=== PATIENT | male | born 1985 | race Hispanic/Latino ===

== ENCOUNTER 2017-11-30 23:21 | Emergency (ER) | payer MEDICAID ==
[~2017-11-30 23:21] MED LIST: ALBU0.63 IH; BACL10TA PEG; CHOL400T4 PO; DEXT1DRO OP; GABA-529 PO; IPRA3AMP4 IH; LACT10SO PEG; MIDO10TA PEG
[2017-11-30 23:42] LABS: APPEARANCE,URINE Clear (CLEAR); BILIRUBIN,URINE Negative (NEGATIVE); COLOR,URINE Yellow (YELLOW); GLUCOSE, URINE (UA) Negative (NEGATIVE); KETONES,URINE Negative (NEGATIVE); LEUKOCYTE ESTERASE ,URINE Negative (NEGATIVE); NITRATE,URINE Negative (NEGATIVE); OCCULT BLOOD,URINE Negative (NEGATIVE); PROTEIN,URINE Negative (NEGATIVE); UROBILINOGEN,URINE 0.2 mg/dL (0.2-1.0)
[2017-11-30] MEDS ORDERED: SODIUM CHLORIDE 0.9% 1000ML 2,000 ML IV ONE (23:42)
[2017-11-30 23:51] LABS: BASOPHILS % (AUTO) 1.3 % (0.0-5.0); EOSINOPHILS % (AUTO) 1.9 % (0.0-8.0); HEMATOCRIT 38.5 % (42-54); LYMPHOCYTES % (AUTO) 6.2 % (21.0-51.0); MEAN CORPUSCULAR HEMOGLOBIN 30.2 pg (27.0-33.0); MEAN CORPUSCULAR HGB CONC 33.3 g/dL (32.0-36.0); MEAN CORPUSCULAR VOLUME 90.6 fL (79-99); MONOCYTES % (AUTO) 6.5 % (3.0-13.0); NUCLEATED RED BLOOD CELLS 0.1 % (0.0-0.19); PLATELET COUNT (AUTO) 223 K/uL (130-400); RED BLOOD CELL COUNT(AUTO) 4.24 MIL/uL (4.50-6.20); RED CELL DISTRIBUTION WIDTH 15.5 % (11.0-15.5); WHITE BLOOD COUNT (AUTO) 9.9 K/uL (4.8-10.8)
[2017-11-30] MEDS ORDERED: MEROPENEM 1 GM VIAL ONE (23:57)
[2017-12-01] LABS: INR 1.11 (0.85-1.15); PARTIAL THROMBOPLASTIN TIME 31.3 SEC (26.3-35.5); PROTHROMBIN TIME 11.6 SEC (9.6-11.6)
[2017-12-01 00:43] LABS: NEUTROPHILS % (AUTO) 84.1 % (40.0-77.0)
[2018-02-09] MEDS ORDERED: TRAZ-144 PO (18:38)
== END 2017-12-01 01:46 | disposition home or self-care (01) ==
LOC: EDH 23:21
DX: J18.9 Pneumonia, unspecified organism (principal); J04.10 Acute tracheitis without obstruction; R10.9 Unspecified abdominal pain
CPT/HCPCS: 36415; 71045; 81003; 83605; 85025; 85610; 85730; 87040 ×2; 87071; 87088; 87205; 87804 ×2; 96361; 96374; 99285; A4218; J2185; J7030

== ENCOUNTER 2018-02-08 20:24 | Inpatient (IN) | payer MEDICAID ==
[~2018-02-08] VITALS: Ht 165.1 cm; Wt 46.4 kg
[~2018-02-08 20:24] MED LIST changes: +IPRA3AMP24 IH; -IPRA3AMP4 IH
[2018-02-08 20:53] LABS: BASOPHILS % (AUTO) 0.3 % (0.0-5.0); EOSINOPHILS % (AUTO) 0.2 % (0.0-8.0); HEMATOCRIT 41.5 % (42-54); LYMPHOCYTES % (AUTO) 3.6 % (21.0-51.0); MEAN CORPUSCULAR HEMOGLOBIN 31.3 pg (27.0-33.0); MEAN CORPUSCULAR HGB CONC 33.8 g/dL (32.0-36.0); MEAN CORPUSCULAR VOLUME 92.6 fL (79-99); NEUTROPHILS % (AUTO) 92.9 % (40.0-77.0); PLATELET COUNT (AUTO) 329 K/uL (130-400); RED BLOOD CELL COUNT(AUTO) 4.48 MIL/uL (4.50-6.20); RED CELL DISTRIBUTION WIDTH 14.6 % (11.0-15.5); WHITE BLOOD COUNT (AUTO) 21.6 K/uL (4.8-10.8)
[2018-02-08 21:05] LABS: CARBON DIOXIDE 29 mmol/L (21-32); CHLORIDE 101 mmol/L (101-111); CREATININE 0.2 mg/dL (0.5-1.5); GLOMERULAR FILTR. RATE CALC 593 mL/min (>60); GLUCOSE,RANDOM 96 mg/dL (70-105); POTASSIUM 4.2 mmol/L (3.5-5.1); SODIUM SERUM 140 mmol/L (136-145); UREA NITROGEN, BLOOD 11 mg/dL (7-18)
[2018-02-08 21:08] LABS: INR 1.18 (0.85-1.15); PARTIAL THROMBOPLASTIN TIME 28.5 SEC (26.3-35.5)
[2018-02-08 21:11] LABS: APPEARANCE,URINE Turbid (CLEAR); BILIRUBIN,URINE Negative (NEGATIVE); COLOR,URINE Yellow (YELLOW); GLUCOSE, URINE (UA) Negative (NEGATIVE); KETONES,URINE Negative (NEGATIVE); LEUKOCYTE ESTERASE ,URINE Negative (NEGATIVE); NITRATE,URINE Negative (NEGATIVE); OCCULT BLOOD,URINE Negative (NEGATIVE); PH,URINE 8.5 (5.0-8.0); PROTEIN,URINE Negative (NEGATIVE)
[2018-02-08 21:19] LABS: ALANINE AMINOTRANSFERASE 56 U/L (12-78); ALBUMIN 3.9 g/dL (3.5-5.0); ASPARTATE AMINOTRANSFERASE 38 U/L (10-37); BILIRUBIN,TOTAL 1.3 mg/dL (0.2-1.0); CREATINE KINASE MB 1.4 ng/mL (0.5-3.6); CREATINE KINASE, TOTAL 264 U/L (21-232); MYOGLOBIN 145 ng/mL (10-92); TOTAL PROTEIN, SERUM 9.8 g/dL (6.0-8.3); TROPONIN I < 0.04 ng/mL (0.00-0.06)
[2018-02-08 21:57] LABS: AMORPHOUS SEDIMENT,UR Moderate /LPF (None Seen); BACTERIA,URINE Few /HPF (None Seen); RBC,URINE None Seen /HPF (0-1); WBC,URINE None Seen /HPF (0-1)
[2018-02-08] MEDS ORDERED: MEROPENEM 1 GM VIAL ONE (22:06)
[2018-02-08] MEDS ORDERED: LEVOFLOXACIN 500 MG/D5W 100 ML 100 ML ONE (22:15)
[2018-02-08] MEDS ORDERED: CEFTRIAXONE SODIUM 1 GM ONE (22:15)
[2018-02-08] MEDS ORDERED: SODIUM CHLORIDE 0.9% 50 ML IV ONE (22:16)
[2018-02-09] VITALS (18 sets, daily range): BP systolic 90–147; BP diastolic 46–85
[2018-02-09] MEDS ORDERED: KETOROLAC TROMETHAMINE 30MG/ML ONE (00:11)
[2018-02-09] MEDS: SODIUM CHLORIDE 0.9% 1000ML 1,000 ML IV SCH ×3 (01:22→23:49)
[2018-02-09] MEDS: LEVOFLOXACIN 500 MG/D5W 100 ML 100 ML IV SCH (01:30)
[2018-02-09] MEDS ORDERED: POTASSIUM CHLORIDE 20 MEQ ERTAB PO PRN (01:30)
[2018-02-09] MEDS ORDERED: VANCOMYCIN 1GM+NS 250ML 250 ML IV SCH (01:30)
[2018-02-09] MEDS ORDERED: POTASSIUM CHLORIDE 20MEQ/100ML 100 ML IV PRN (01:30)
[2018-02-09] MEDS ORDERED: LIDOCAINE HCL-MPF 1% 2ML VIAL IVP PRN (01:30)
[2018-02-09] MEDS ORDERED: ONDANSETRON HCL MDV 20ML 2 MG/ML VIAL IV PRN (01:30)
[2018-02-09] MEDS ORDERED: VANCOMYCIN PROTOCOL PER PHARMACY IV SCH (02:15)
[2018-02-09] MEDS ORDERED: SODIUM CHLORIDE 0.9% 1000ML 1,000 ML IV ONE (02:57)
[2018-02-09] MEDS ORDERED: VANCOMYCIN 1GM+NS 250ML 250 ML IV ONE (02:58)
[2018-02-09] MEDS ORDERED: KETOROLAC TROMETHAMINE 15MG/ML ONE (04:16)
[2018-02-09 04:42] LABS: HEMATOCRIT 34.5 % (42-54); MEAN CORPUSCULAR HGB CONC 33.1 g/dL (32.0-36.0); MEAN CORPUSCULAR VOLUME 93.5 fL (79-99); PLATELET COUNT (AUTO) 273 K/uL (130-400); RED BLOOD CELL COUNT(AUTO) 3.69 MIL/uL (4.50-6.20); RED CELL DISTRIBUTION WIDTH 14.4 % (11.0-15.5)
[2018-02-09 04:59] LABS: POTASSIUM 3.4 mmol/L (3.5-5.1)
[2018-02-09 05:13] LABS: CREATININE 0.2 mg/dL (0.5-1.5)
[2018-02-09] MEDS ORDERED: IPRATROPIUM/ALBUTEROL SULFATE 3 ML SOLUTION IH ONE (06:16)
[2018-02-09] MEDS: IPRATROPIUM/ALBUTEROL SULFATE 3 ML SOLUTION IH SCH ×4 (06:19→23:28)
[2018-02-09 08:25] LABS: ABG BASE EXCESS -3.9 mmol/L (-2.0-3.0); ABG HCO3 19.7 mmol/L (21.0-28.0); ABG OXYGEN SATURATION 91.8 % (95.0-99.0); ABG PCO2 32 mmHg (35-48)
[2018-02-09] MEDS ORDERED: PANTOPRAZOLE 40 MG/VIAL IVP SCH (09:00)
[2018-02-09] MEDS ORDERED: NITROGLYCERIN 0.4 MG SL TAB SL PRN (10:30)
[2018-02-09] MEDS ORDERED: MAG HYDROX/AL HYDROX/SIMETH ES 30 ML SUSP UDCUP PO PRN (10:30)
[2018-02-09] MEDS ORDERED: GUAIFENESIN-DM 200/20 MG 10 ML PO PRN (10:30)
[2018-02-09] MEDS ORDERED: LACTULOSE 20 GM/30 ML UDCUP PO PRN (10:30)
[2018-02-09] MEDS ORDERED: ACETAMINOPHEN 325 MG TAB PO PRN ×2 (10:30)
[2018-02-09] MEDS ORDERED: COMPOUND IV REFRIGERATED 1 EACH IVSOLN MISC PRN (10:45)
[2018-02-09] MEDS: ACETYLCYSTEINE 20% 200MG/ML 4ML VIAL IH SCH ×2 (11:06→18:31)
[2018-02-09] MEDS: VANCOMYCIN 750MG + NS 250 ML IV SCH ×4 (13:09→20:53)
[2018-02-09] MEDS: ENOXAPARIN SODIUM 40 MG/0.4 ML SYRINGE SQ SCH (14:22)
[2018-02-09] MEDS: ZOSYN 3.375GM+NS 50ML 50 ML IV SCH ×2 (14:34→22:49)
[2018-02-09] MEDS ORDERED: ACETAMINOPHEN ELIXIR 650 MG/20.3 ML UDCUP PEG PRN (16:30)
[2018-02-09] MEDS: ACETAMINOPHEN ELIXIR 650 MG/20.3 ML UDCUP PEG PRN (16:36)
[2018-02-09] MEDS ORDERED: ALBU0.63 IH (18:29)
[2018-02-09] MEDS ORDERED: BACL10TA PO (18:29)
[2018-02-09] MEDS ORDERED: LACT10SO9 PO (18:33)
[2018-02-09] MEDS ORDERED: GABA-529 PO (18:33)
[2018-02-09] MEDS ORDERED: IBUP100O20 PO (18:37)
[2018-02-09] MEDS ORDERED: ACET160S2 PO (18:37)
[2018-02-09] MEDS ORDERED: TRAZ-185 PO (18:38)
[2018-02-10] VITALS (25 sets, daily range): BP systolic 85–109; BP diastolic 41–71
[2018-02-10] MEDS: LEVOFLOXACIN 500 MG/D5W 100 ML 100 ML IV SCH (01:39)
[2018-02-10 04:18] LABS: HEMATOCRIT 27.1 % (42-54); MEAN CORPUSCULAR HEMOGLOBIN 33.2 pg (27.0-33.0); MEAN CORPUSCULAR HGB CONC 35.1 g/dL (32.0-36.0); MEAN CORPUSCULAR VOLUME 94.6 fL (79-99); PLATELET COUNT (AUTO) 199 K/uL (130-400); RED BLOOD CELL COUNT(AUTO) 2.86 MIL/uL (4.50-6.20); RED CELL DISTRIBUTION WIDTH 14.5 % (11.0-15.5); WHITE BLOOD COUNT (AUTO) 9.7 K/uL (4.8-10.8)
[2018-02-10] MEDS: ZOSYN 3.375GM+NS 50ML 50 ML IV SCH ×3 (04:23→23:01)
[2018-02-10 04:26] LABS: CREATININE 0.2 mg/dL (0.5-1.5); POTASSIUM 3.2 mmol/L (3.5-5.1)
[2018-02-10] MEDS: IPRATROPIUM/ALBUTEROL SULFATE 3 ML SOLUTION IH SCH ×3 (06:35→18:55)
[2018-02-10] MEDS: ACETYLCYSTEINE 20% 200MG/ML 4ML VIAL IH SCH ×3 (06:35→18:55)
[2018-02-10] MEDS ORDERED: IBUPROFEN 100 MG/5 ML SUSP UDCUP PO PRN (07:15)
[2018-02-10] MEDS ORDERED: TRAZODONE HCL 50 MG TAB PO PRN (07:15)
[2018-02-10] MEDS: FAMOTIDINE/PF 20 MG/2 ML VIAL IV SCH ×2 (08:58→20:51)
[2018-02-10] MEDS: ENOXAPARIN SODIUM 40 MG/0.4 ML SYRINGE SQ SCH (08:58)
[2018-02-10] MEDS: MIDODRINE HCL 5 MG TABLET PEG SCH ×3 (08:58→20:52)
[2018-02-10] MEDS: GABAPENTIN 100 MG CAPSULE PO SCH ×3 (08:59→20:52)
[2018-02-10] MEDS: POTASSIUM CHLORIDE 10% ELIXIR 20 MEQ/15 ML UDCUP PO PRN ×3 (08:59→13:02)
[2018-02-10] MEDS: LACTULOSE 20 GM/30 ML UDCUP PO SCH ×3 (09:00→20:51)
[2018-02-10] MEDS: VANCOMYCIN 750MG + NS 250 ML IV SCH ×2 (09:04)
[2018-02-10] MEDS: **HM** VIT D3 400 UNITS PO SCH (09:05)
[2018-02-10] MEDS: VANCOMYCIN 1GM+NS 250ML 250 ML IV SCH (20:51)
[2018-02-10] MEDS: BACLOFEN 10 MG TABLET PO SCH (20:52)
[2018-02-11] VITALS (21 sets, daily range): BP systolic 81–122; BP diastolic 37–74
[2018-02-11] MEDS: IPRATROPIUM/ALBUTEROL SULFATE 3 ML SOLUTION IH SCH ×5 (00:36→23:22)
[2018-02-11] MEDS: LEVOFLOXACIN 500 MG/D5W 100 ML 100 ML IV SCH (02:42)
[2018-02-11] MEDS: ZOSYN 3.375GM+NS 50ML 50 ML IV SCH ×3 (05:11→21:02)
[2018-02-11 06:04] LABS: HEMATOCRIT 29.1 % (42-54); MEAN CORPUSCULAR HEMOGLOBIN 31.5 pg (27.0-33.0); MEAN CORPUSCULAR HGB CONC 33.5 g/dL (32.0-36.0); MEAN CORPUSCULAR VOLUME 93.9 fL (79-99); PLATELET COUNT (AUTO) 233 K/uL (130-400); RED CELL DISTRIBUTION WIDTH 14.5 % (11.0-15.5); WHITE BLOOD COUNT (AUTO) 6.1 K/uL (4.8-10.8)
[2018-02-11 06:16] LABS: POTASSIUM 4.3 mmol/L (3.5-5.1)
[2018-02-11 06:21] LABS: CREATININE 0.2 mg/dL (0.5-1.5)
[2018-02-11] MEDS ORDERED: ACETYLCYSTEINE 20% 200MG/ML 4ML VIAL ONE (06:53)
[2018-02-11] MEDS: ACETYLCYSTEINE 20% 200MG/ML 4ML VIAL IH SCH ×3 (06:55→19:14)
[2018-02-11] MEDS ORDERED: TRAMADOL HCL 50 MG TABLET PO PRN (07:15)
[2018-02-11] MEDS: FAMOTIDINE/PF 20 MG/2 ML VIAL IV SCH ×2 (08:01→21:02)
[2018-02-11] MEDS: GABAPENTIN 100 MG CAPSULE PO SCH ×3 (08:01→21:01)
[2018-02-11] MEDS: ENOXAPARIN SODIUM 40 MG/0.4 ML SYRINGE SQ SCH (08:01)
[2018-02-11] MEDS: LACTULOSE 20 GM/30 ML UDCUP PO SCH ×3 (08:02→21:00)
[2018-02-11] MEDS: **HM** VIT D3 400 UNITS PO SCH (08:05)
[2018-02-11] MEDS: VANCOMYCIN 1GM+NS 250ML 250 ML IV SCH ×2 (08:13→21:02)
[2018-02-11] MEDS: MIDODRINE HCL 5 MG TABLET PEG SCH ×3 (08:14→21:02)
[2018-02-11] MEDS: BACLOFEN 10 MG TABLET PO SCH (21:02)
[2018-02-12] MEDS: LEVOFLOXACIN 500 MG/D5W 100 ML 100 ML IV SCH (00:37)
[2018-02-12 03:32] VITALS: BP 82/52
[2018-02-12 04:18] LABS: HEMATOCRIT 31.2 % (42-54); MEAN CORPUSCULAR HEMOGLOBIN 32.8 pg (27.0-33.0); MEAN CORPUSCULAR HGB CONC 34.7 g/dL (32.0-36.0); MEAN CORPUSCULAR VOLUME 94.4 fL (79-99); PLATELET COUNT (AUTO) 240 K/uL (130-400); RED CELL DISTRIBUTION WIDTH 14.5 % (11.0-15.5); WHITE BLOOD COUNT (AUTO) 8.6 K/uL (4.8-10.8)
[2018-02-12 04:20] LABS: CREATININE 0.2 mg/dL (0.5-1.5); POTASSIUM 4.1 mmol/L (3.5-5.1)
[2018-02-12] MEDS: ZOSYN 3.375GM+NS 50ML 50 ML IV SCH ×2 (04:24→12:02)
[2018-02-12] MEDS: IPRATROPIUM/ALBUTEROL SULFATE 3 ML SOLUTION IH SCH (06:21)
[2018-02-12 07:18] VITALS: BP 95/55
[2018-02-12] MEDS ORDERED: LEVO750T46 PO (07:25)
[2018-02-12] MEDS: MIDODRINE HCL 5 MG TABLET PEG SCH ×2 (08:35→12:02)
[2018-02-12] MEDS: FAMOTIDINE/PF 20 MG/2 ML VIAL IV SCH (08:35)
[2018-02-12] MEDS: VANCOMYCIN 1GM+NS 250ML 250 ML IV SCH (08:36)
[2018-02-12] MEDS: ENOXAPARIN SODIUM 40 MG/0.4 ML SYRINGE SQ SCH (08:37)
[2018-02-12] MEDS: **HM** VIT D3 400 UNITS PO SCH (08:37)
[2018-02-12] MEDS: LACTULOSE 20 GM/30 ML UDCUP PO SCH ×2 (08:37→11:55)
[2018-02-12] MEDS: GABAPENTIN 100 MG CAPSULE PO SCH ×2 (08:37→12:02)
[2018-02-12 11:07] VITALS: BP 91/46
[2018-02-12 15:26] VITALS: BP 90/49
[2018-02-12] MEDS: ACETAMINOPHEN ELIXIR 650 MG/20.3 ML UDCUP PEG PRN (15:31)
== END 2018-02-12 16:20 | disposition home or self-care (01) | DRG 720 ==
LOC: EDH 20:24 → EDHIP 20:25 → 2BH 02-09 08:07
PROVIDERS: ADMIT Internal Medicine; ATTEND Internal Medicine
PROC: 5A1945Z Respiratory Ventilation, 24-96 Consecutive Hours (ICD-10-PCS; principal; 2018-02-08)
DX: A41.9 Sepsis, unspecified organism (principal); J96.10 Chronic respiratory failure, unspecified whether with hypoxia or hypercapnia; J18.9 Pneumonia, unspecified organism; E44.0 Moderate protein-calorie malnutrition; G71.0 Muscular dystrophy; R53.2 Functional quadriplegia; Z93.0 Tracheostomy status; G62.9 Polyneuropathy, unspecified; D64.9 Anemia, unspecified; Z93.1 Gastrostomy status; Z68.1 Body mass index [BMI] 19.9 or less, adult
CPT/HCPCS: 36415; 36600; 71045; 80048; 80053; 80202; 81001; 82550; 82553; 82803; 83605; 83874; 84484; 85025; 85027; 85610; 85730; 87040; 87071; 87077; 87088; 87186; 87205; 93005; 94002; 94003; 94640; 94664; 94667; 94668; C9113; J0696; J1650; J1885; J1956; J2185; J2543; J3370; J3490; J7030; J7608

== ENCOUNTER 2018-03-28 18:35 | Inpatient (IN) | payer MEDICAID ==
[~2018-03-28] VITALS: Ht 160 cm; Wt 44.9 kg
[~2018-03-28 18:35] MED LIST changes: +ACET160S2 PO; -BACL10TA PEG; +BACL10TA PO; -DEXT1DRO OP; +IBUP100O20 PO; -IPRA3AMP24 IH; -LACT10SO PEG; +LACT10SO9 PO; +LEVO750T46 PO; +TRAZ-185 PO
[2018-03-28 19:15] LABS: BASOPHILS % (AUTO) 0.1 % (0.0-5.0); EOSINOPHILS % (AUTO) 0.2 % (0.0-8.0); HEMATOCRIT 33.9 % (42-54); MEAN CORPUSCULAR HEMOGLOBIN 31.8 pg (27.0-33.0); MEAN CORPUSCULAR HGB CONC 34.4 g/dL (32.0-36.0); MEAN CORPUSCULAR VOLUME 92.6 fL (79-99); MONOCYTES % (AUTO) 5.4 % (3.0-13.0); NEUTROPHILS % (AUTO) 92.3 % (40.0-77.0); PLATELET COUNT (AUTO) 240 K/uL (130-400); RED BLOOD CELL COUNT(AUTO) 3.66 MIL/uL (4.50-6.20); RED CELL DISTRIBUTION WIDTH 14.4 % (11.0-15.5); WHITE BLOOD COUNT (AUTO) 17.7 K/uL (4.8-10.8)
[2018-03-28 19:30] LABS: CARBON DIOXIDE 27 mmol/L (21-32); CHLORIDE 100 mmol/L (101-111); CREATININE 0.2 mg/dL (0.5-1.5); GLOMERULAR FILTR. RATE CALC 593 mL/min (>60); GLUCOSE,RANDOM 116 mg/dL (70-105); POTASSIUM 3.7 mmol/L (3.5-5.1); SODIUM SERUM 135 mmol/L (136-145); UREA NITROGEN, BLOOD 14 mg/dL (7-18)
[2018-03-28 19:32] LABS: INR 1.19 (0.85-1.15); PARTIAL THROMBOPLASTIN TIME 30.7 SEC (26.3-35.5); PROTHROMBIN TIME 12.5 SEC (9.6-11.6)
[2018-03-28 19:45] LABS: ALANINE AMINOTRANSFERASE 40 U/L (12-78); ALBUMIN 3.2 g/dL (3.5-5.0); ASPARTATE AMINOTRANSFERASE 26 U/L (10-37); BILIRUBIN,TOTAL 1.2 mg/dL (0.2-1.0); CREATINE KINASE, TOTAL 163 U/L (21-232); MYOGLOBIN 156 ng/mL (10-92); TOTAL PROTEIN, SERUM 8.1 g/dL (6.0-8.3); TROPONIN I < 0.04 ng/mL (0.00-0.06)
[2018-03-28 20:28] LABS: APPEARANCE,URINE Clear (CLEAR); BILIRUBIN,URINE Negative (NEGATIVE); COLOR,URINE Yellow (YELLOW); GLUCOSE, URINE (UA) Negative (NEGATIVE); KETONES,URINE Negative (NEGATIVE); LEUKOCYTE ESTERASE ,URINE Negative (NEGATIVE); NITRATE,URINE Negative (NEGATIVE); OCCULT BLOOD,URINE Negative (NEGATIVE); PROTEIN,URINE Negative (NEGATIVE)
[2018-03-28] MEDS ORDERED: CEFTRIAXONE SODIUM 1 GM ONE (21:40)
[2018-03-28] MEDS ORDERED: ACETAMINOPHEN ELIXIR 650 MG/20.3 ML UDCUP ONE (21:40)
[2018-03-28] MEDS ORDERED: ZOSYN 3.375GM+NS 50ML 50 ML IV ONE (21:40)
[2018-03-28] MEDS ORDERED: ACETAMINOPHEN 325 MG TAB PEG PRN (22:15)
[2018-03-28] MEDS ORDERED: GUAIFENESIN-DM 200/20 MG 10 ML PEG PRN (22:15)
[2018-03-28] MEDS ORDERED: VANCOMYCIN 1GM+NS 250ML 250 ML IV SCH (22:15)
[2018-03-28] MEDS ORDERED: CLONIDINE HCL 0.1 MG TABLET PO PRN (22:15)
[2018-03-28] MEDS ORDERED: SODIUM CHLORIDE 0.9% 10 ML VIAL IVP SCH (22:15)
[2018-03-28] MEDS ORDERED: ACETAMINOPHEN 325 MG TAB PO PRN (22:15)
[2018-03-28] MEDS ORDERED: LACTULOSE 20 GM/30 ML UDCUP PO PRN (22:15)
[2018-03-28] MEDS: PIPERACILLIN SODIUM/TAZOBACTAM 3.375 GM VIAL IV SCH (23:00)
[2018-03-28] MEDS: IPRATROPIUM/ALBUTEROL SULFATE 3 ML SOLUTION IH SCH (23:08)
[2018-03-29] MEDS: LEVOFLOXACIN 500 MG/D5W 100 ML 100 ML IV SCH
[2018-03-29] MEDS: VANCOMYCIN 1GM+NS 250ML 250 ML IV SCH ×2 (01:00→13:00)
[2018-03-29] MEDS ORDERED: LEVOFLOXACIN 500 MG/D5W 100 ML 100 ML ONE (01:24)
[2018-03-29] MEDS ORDERED: POTASSIUM CHLORIDE 20 MEQ ERTAB PO PRN ×2 (01:45→12:30)
[2018-03-29] MEDS ORDERED: LIDOCAINE HCL-MPF 1% 2ML VIAL IVP PRN ×2 (01:45→12:30)
[2018-03-29] MEDS ORDERED: POTASSIUM CHLORIDE 10% ELIXIR 20 MEQ/15 ML UDCUP PO PRN ×2 (01:45→12:30)
[2018-03-29] MEDS ORDERED: POTASSIUM CHLORIDE 20MEQ/100ML 100 ML IV PRN ×2 (01:45→12:30)
[2018-03-29] MEDS ORDERED: VANCOMYCIN 1GM+NS 250ML 250 ML IV ONE ×2 (03:54→15:48)
[2018-03-29] MEDS: PIPERACILLIN SODIUM/TAZOBACTAM 3.375 GM VIAL IV SCH ×4 (05:00→23:00)
[2018-03-29 06:00] LABS: BASOPHILS % (AUTO) 0.1 % (0.0-5.0); EOSINOPHILS % (AUTO) 0.1 % (0.0-8.0); HEMATOCRIT 33.5 % (42-54); LYMPHOCYTES % (AUTO) 5.4 % (21.0-51.0); MEAN CORPUSCULAR HEMOGLOBIN 31.5 pg (27.0-33.0); MEAN CORPUSCULAR HGB CONC 33.7 g/dL (32.0-36.0); MEAN CORPUSCULAR VOLUME 93.6 fL (79-99); MONOCYTES % (AUTO) 11.1 % (3.0-13.0); NEUTROPHILS % (AUTO) 83.3 % (40.0-77.0); PLATELET COUNT (AUTO) 239 K/uL (130-400); RED BLOOD CELL COUNT(AUTO) 3.58 MIL/uL (4.50-6.20); RED CELL DISTRIBUTION WIDTH 14.2 % (11.0-15.5); WHITE BLOOD COUNT (AUTO) 19.7 K/uL (4.8-10.8)
[2018-03-29 06:09] LABS: POTASSIUM 3.1 mmol/L (3.5-5.1)
[2018-03-29] MEDS ORDERED: IPRATROPIUM/ALBUTEROL SULFATE 3 ML SOLUTION IH ONE (06:37)
[2018-03-29 06:38] LABS: CREATININE 0.2 mg/dL (0.5-1.5)
[2018-03-29] MEDS: IPRATROPIUM/ALBUTEROL SULFATE 3 ML SOLUTION IH SCH ×4 (06:39→23:10)
[2018-03-29] MEDS ORDERED: POTASSIUM CHLORIDE 20MEQ/100ML 100 ML IV ONE (08:23)
[2018-03-29] MEDS ORDERED: ZOSYN 3.375GM+NS 50ML 50 ML IV ONE ×4 (08:23→22:23)
[2018-03-29] MEDS ORDERED: FAMOTIDINE 20MG TAB 20 MG TAB ONE (08:23)
[2018-03-29] MEDS: FAMOTIDINE 20MG TAB 20 MG TAB PEG SCH ×2 (09:00→21:00)
[2018-03-29] MEDS ORDERED: MIDODRINE HCL 5 MG TABLET ONE ×2 (09:19→13:48)
[2018-03-29] MEDS: MIDODRINE HCL 5 MG TABLET PO SCH ×3 (09:27→21:00)
[2018-03-29] MEDS: GABAPENTIN 100 MG CAPSULE PO SCH ×3 (09:27→21:00)
[2018-03-29] MEDS ORDERED: POTASSIUM CHLORIDE 10% ELIXIR 20 MEQ/15 ML UDCUP ONE ×2 (10:25→14:02)
[2018-03-29] MEDS: ACETYLCYSTEINE 20% 200MG/ML 4ML VIAL IH SCH ×3 (12:20→23:10)
[2018-03-29] MEDS: VANCOMYCIN 500MG+NS 100ML 100 ML IV SCH (18:00)
[2018-03-29] MEDS ORDERED: VANCOMYCIN PROTOCOL PER PHARMACY IV SCH (18:00)
[2018-03-30 04:43] LABS: ABG BASE EXCESS 0.3 mmol/L (-2.0-3.0); ABG HCO3 24.9 mmol/L (21.0-28.0); ABG OXYGEN SATURATION 98.7 % (95.0-99.0); ABG PCO2 40 mmHg (35-48)
[2018-03-30] MEDS: PIPERACILLIN SODIUM/TAZOBACTAM 3.375 GM VIAL IV SCH ×4 (05:00→23:00)
[2018-03-30 05:35] LABS: BASOPHILS % (AUTO) 0.3 % (0.0-5.0); EOSINOPHILS % (AUTO) 1.5 % (0.0-8.0); HEMATOCRIT 28.4 % (42-54); LYMPHOCYTES % (AUTO) 16.5 % (21.0-51.0); MEAN CORPUSCULAR HEMOGLOBIN 32.5 pg (27.0-33.0); MEAN CORPUSCULAR HGB CONC 34.5 g/dL (32.0-36.0); MEAN CORPUSCULAR VOLUME 94.2 fL (79-99); MONOCYTES % (AUTO) 13.9 % (3.0-13.0); NEUTROPHILS % (AUTO) 67.8 % (40.0-77.0); PLATELET COUNT (AUTO) 230 K/uL (130-400); RED BLOOD CELL COUNT(AUTO) 3.02 MIL/uL (4.50-6.20); RED CELL DISTRIBUTION WIDTH 14.3 % (11.0-15.5); WHITE BLOOD COUNT (AUTO) 8.1 K/uL (4.8-10.8)
[2018-03-30] MEDS ORDERED: IPRATROPIUM/ALBUTEROL SULFATE 3 ML SOLUTION IH ONE (05:46)
[2018-03-30] MEDS: IPRATROPIUM/ALBUTEROL SULFATE 3 ML SOLUTION IH SCH ×3 (05:47→19:13)
[2018-03-30] MEDS ORDERED: ZOSYN 3.375GM+NS 50ML 50 ML IV ONE (05:50)
[2018-03-30] MEDS ORDERED: ACETYLCYSTEINE 20% 200MG/ML 4ML VIAL ONE (05:51)
[2018-03-30 05:52] LABS: ALBUMIN 2.6 g/dL (3.5-5.0); MAGNESIUM 1.7 mg/dL (1.80-2.40); PHOSPHORUS 3.2 mg/dL (2.5-4.9); POTASSIUM 4.2 mmol/L (3.5-5.1); TOTAL PROTEIN, SERUM 7.1 g/dL (6.0-8.3)
[2018-03-30] MEDS: ACETYLCYSTEINE 20% 200MG/ML 4ML VIAL IH SCH ×3 (05:53→19:13)
[2018-03-30] MEDS: VANCOMYCIN 500MG+NS 100ML 100 ML IV SCH ×2 (06:00→17:42)
[2018-03-30 06:19] LABS: CREATININE 0.1 mg/dL (0.5-1.5)
[2018-03-30] MEDS ORDERED: ENOXAPARIN SODIUM 40 MG/0.4 ML SYRINGE SQ ONE (08:28)
[2018-03-30] MEDS ORDERED: LEVOFLOXACIN 500 MG/D5W 100 ML 100 ML ONE (08:28)
[2018-03-30] MEDS: FAMOTIDINE 20MG TAB 20 MG TAB PEG SCH ×2 (09:00→20:55)
[2018-03-30] MEDS: MIDODRINE HCL 5 MG TABLET PO SCH ×3 (09:00→20:56)
[2018-03-30] MEDS: GABAPENTIN 100 MG CAPSULE PO SCH ×3 (09:00→20:56)
[2018-03-30] MEDS: ENOXAPARIN SODIUM 40 MG/0.4 ML SYRINGE SQ SCH (09:00)
[2018-03-30] MEDS ORDERED: FAMOTIDINE 20MG TAB 20 MG TAB ONE (09:45)
[2018-03-30 10:40] VITALS: BP 98/63
[2018-03-30] MEDS ORDERED: IBUPROFEN 100 MG/5 ML SUSP UDCUP PO PRN (13:45)
[2018-03-30] MEDS ORDERED: TRAZODONE HCL 50 MG TAB PO PRN (13:45)
[2018-03-30 16:05] VITALS: BP 91/51
[2018-03-30] MEDS: ZOSYN 3.375GM+NS 50ML 50 ML IV SCH ×2 (17:39→20:55)
[2018-03-30] MEDS: BACLOFEN 10 MG TABLET PO SCH (20:56)
[2018-03-30 21:00] VITALS: BP 91/55
[2018-03-30] MEDS: LEVOFLOXACIN 500 MG/D5W 100 ML 100 ML IV SCH ×2 (23:29)
[2018-03-31] VITALS (7 sets, daily range): BP systolic 87–96; BP diastolic 41–57
[2018-03-31] MEDS: IPRATROPIUM/ALBUTEROL SULFATE 3 ML SOLUTION IH SCH ×5 (00:15→23:40)
[2018-03-31] MEDS: ACETYLCYSTEINE 20% 200MG/ML 4ML VIAL IH SCH ×5 (00:15→23:40)
[2018-03-31] MEDS: ZOSYN 3.375GM+NS 50ML 50 ML IV SCH ×3 (04:49→21:20)
[2018-03-31 05:48] LABS: BASOPHILS % (AUTO) 0.4 % (0.0-5.0); EOSINOPHILS % (AUTO) 2.5 % (0.0-8.0); HEMATOCRIT 26.5 % (42-54); MEAN CORPUSCULAR HEMOGLOBIN 31.9 pg (27.0-33.0); MEAN CORPUSCULAR HGB CONC 34.3 g/dL (32.0-36.0); MEAN CORPUSCULAR VOLUME 93.1 fL (79-99); MONOCYTES % (AUTO) 10.8 % (3.0-13.0); NEUTROPHILS % (AUTO) 65.3 % (40.0-77.0); PLATELET COUNT (AUTO) 239 K/uL (130-400); RED BLOOD CELL COUNT(AUTO) 2.85 MIL/uL (4.50-6.20); RED CELL DISTRIBUTION WIDTH 14.5 % (11.0-15.5); WHITE BLOOD COUNT (AUTO) 6.3 K/uL (4.8-10.8)
[2018-03-31 06:00] LABS: CREATININE 0.1 mg/dL (0.5-1.5); POTASSIUM 4.1 mmol/L (3.5-5.1)
[2018-03-31] MEDS: VANCOMYCIN 500MG+NS 100ML 100 ML IV SCH ×3 (06:47→23:28)
[2018-03-31] MEDS: ENOXAPARIN SODIUM 40 MG/0.4 ML SYRINGE SQ SCH (10:04)
[2018-03-31] MEDS: FAMOTIDINE 20MG TAB 20 MG TAB PEG SCH ×2 (10:04→21:15)
[2018-03-31] MEDS: GABAPENTIN 100 MG CAPSULE PO SCH ×3 (10:04→21:15)
[2018-03-31] MEDS: MIDODRINE HCL 5 MG TABLET PO SCH ×3 (10:04→21:15)
[2018-03-31] MEDS: BACLOFEN 10 MG TABLET PO SCH (21:14)
[2018-04-01] MEDS: LEVOFLOXACIN 500 MG/D5W 100 ML 100 ML IV SCH (00:26)
[2018-04-01 04:28] VITALS: BP 90/60
[2018-04-01] MEDS: ZOSYN 3.375GM+NS 50ML 50 ML IV SCH ×3 (04:37→21:34)
[2018-04-01 05:35] LABS: HEMATOCRIT 26.8 % (42-54); MEAN CORPUSCULAR HEMOGLOBIN 32.4 pg (27.0-33.0); MEAN CORPUSCULAR HGB CONC 34.3 g/dL (32.0-36.0); MEAN CORPUSCULAR VOLUME 94.4 fL (79-99); PLATELET COUNT (AUTO) 224 K/uL (130-400); RED BLOOD CELL COUNT(AUTO) 2.84 MIL/uL (4.50-6.20); RED CELL DISTRIBUTION WIDTH 14.4 % (11.0-15.5); WHITE BLOOD COUNT (AUTO) 4.8 K/uL (4.8-10.8)
[2018-04-01 05:58] LABS: CREATININE 0.1 mg/dL (0.5-1.5); MAGNESIUM 1.9 mg/dL (1.80-2.40); PHOSPHORUS 3.9 mg/dL (2.5-4.9)
[2018-04-01] MEDS: VANCOMYCIN 500MG+NS 100ML 100 ML IV SCH ×3 (06:36→22:55)
[2018-04-01 07:21] VITALS: BP 117/55
[2018-04-01] MEDS: IPRATROPIUM/ALBUTEROL SULFATE 3 ML SOLUTION IH SCH ×3 (07:54→17:45)
[2018-04-01] MEDS: ACETYLCYSTEINE 20% 200MG/ML 4ML VIAL IH SCH ×3 (07:54→17:45)
[2018-04-01] MEDS: FAMOTIDINE 20MG TAB 20 MG TAB PEG SCH ×2 (09:43→21:34)
[2018-04-01] MEDS: GABAPENTIN 100 MG CAPSULE PO SCH ×3 (09:43→21:36)
[2018-04-01] MEDS: MIDODRINE HCL 5 MG TABLET PO SCH ×3 (09:43→21:34)
[2018-04-01] MEDS: ENOXAPARIN SODIUM 40 MG/0.4 ML SYRINGE SQ SCH (09:45)
[2018-04-01 11:46] VITALS: BP 95/60
[2018-04-01 15:55] VITALS: BP 103/68
[2018-04-01 19:13] VITALS: BP 92/52
[2018-04-01] MEDS: BACLOFEN 10 MG TABLET PO SCH (21:34)
[2018-04-01 23:13] VITALS: BP 100/42
[2018-04-02] MEDS: ACETYLCYSTEINE 20% 200MG/ML 4ML VIAL IH SCH ×4 (00:02→19:44)
[2018-04-02] MEDS: IPRATROPIUM/ALBUTEROL SULFATE 3 ML SOLUTION IH SCH ×4 (00:02→19:44)
[2018-04-02] MEDS: LEVOFLOXACIN 500 MG/D5W 100 ML 100 ML IV SCH (00:10)
[2018-04-02 03:51] VITALS: BP 98/46
[2018-04-02 04:15] LABS: HEMATOCRIT 27.3 % (42-54); MEAN CORPUSCULAR HEMOGLOBIN 31.1 pg (27.0-33.0); MEAN CORPUSCULAR HGB CONC 33.1 g/dL (32.0-36.0); MEAN CORPUSCULAR VOLUME 93.8 fL (79-99); PLATELET COUNT (AUTO) 279 K/uL (130-400); RED BLOOD CELL COUNT(AUTO) 2.91 MIL/uL (4.50-6.20); RED CELL DISTRIBUTION WIDTH 14.5 % (11.0-15.5); WHITE BLOOD COUNT (AUTO) 5.6 K/uL (4.8-10.8)
[2018-04-02 04:23] LABS: CREATININE 0.1 mg/dL (0.5-1.5); POTASSIUM 4.2 mmol/L (3.5-5.1)
[2018-04-02] MEDS: ZOSYN 3.375GM+NS 50ML 50 ML IV SCH ×3 (05:41→21:24)
[2018-04-02] MEDS: VANCOMYCIN 500MG+NS 100ML 100 ML IV SCH ×2 (06:13→12:34)
[2018-04-02 07:00] VITALS: BP 90/63
[2018-04-02] MEDS: ENOXAPARIN SODIUM 40 MG/0.4 ML SYRINGE SQ SCH (09:42)
[2018-04-02] MEDS: GABAPENTIN 100 MG CAPSULE PO SCH ×3 (09:42→21:24)
[2018-04-02] MEDS: MIDODRINE HCL 5 MG TABLET PO SCH ×3 (09:43→21:24)
[2018-04-02] MEDS: FAMOTIDINE 20MG TAB 20 MG TAB PEG SCH ×2 (09:43→21:24)
[2018-04-02 11:00] VITALS: BP 92/55
[2018-04-02 16:00] VITALS: BP 96/52
[2018-04-02 19:27] VITALS: BP 89/52
[2018-04-02] MEDS: BACLOFEN 10 MG TABLET PO SCH (21:26)
[2018-04-02 23:52] VITALS: BP 94/55
[2018-04-03] MEDS: IPRATROPIUM/ALBUTEROL SULFATE 3 ML SOLUTION IH SCH ×4 (00:34→18:21)
[2018-04-03] MEDS: ACETYLCYSTEINE 20% 200MG/ML 4ML VIAL IH SCH ×2 (00:34→06:55)
[2018-04-03] MEDS: LEVOFLOXACIN 500 MG/D5W 100 ML 100 ML IV SCH (01:44)
[2018-04-03 04:00] VITALS: BP 98/62
[2018-04-03] MEDS: ZOSYN 3.375GM+NS 50ML 50 ML IV SCH ×2 (05:26→12:56)
[2018-04-03 07:00] VITALS: BP 113/79
[2018-04-03] MEDS: FAMOTIDINE 20MG TAB 20 MG TAB PEG SCH (09:14)
[2018-04-03] MEDS: GABAPENTIN 100 MG CAPSULE PO SCH ×2 (09:14→15:01)
[2018-04-03] MEDS: MIDODRINE HCL 5 MG TABLET PO SCH ×2 (09:14→15:01)
[2018-04-03] MEDS: ENOXAPARIN SODIUM 40 MG/0.4 ML SYRINGE SQ SCH (09:47)
[2018-04-03 11:00] VITALS: BP 99/62
[2018-04-03] MEDS ORDERED: CEFTAZIDIME 1GM+NS 50ML 50 ML IV SCH (13:45)
[2018-04-03] MEDS ORDERED: CEFTAZIDIME PENTAHYDRATE 1 GM/VIAL IVP SCH (14:00)
[2018-04-03 16:00] VITALS: BP 84/63
== END 2018-04-03 19:35 | disposition home health service (06) | DRG 130 ==
LOC: EDH 18:35 → EDHIP 18:36 → 2BH 03-30 10:56
PROVIDERS: ADMIT Internal Medicine; ATTEND Internal Medicine
PROC: 5A1955Z Respiratory Ventilation, Greater than 96 Consecutive Hours (ICD-10-PCS; principal; 2018-03-30)
DX: J96.20 Acute and chronic respiratory failure, unspecified whether with hypoxia or hypercapnia (principal); E43 Unspecified severe protein-calorie malnutrition; J18.9 Pneumonia, unspecified organism; J90 Pleural effusion, not elsewhere classified; G71.0 Muscular dystrophy; Z99.11 Dependence on respirator [ventilator] status; Z93.0 Tracheostomy status; R13.10 Dysphagia, unspecified; Z74.01 Bed confinement status; I95.1 Orthostatic hypotension; Z87.01 Personal history of pneumonia (recurrent); Z68.1 Body mass index [BMI] 19.9 or less, adult
CPT/HCPCS: 36415; 36600; 71045; 71250; 80048; 80053; 80202; 81003; 82550; 82553; 82803; 83605; 83735; 83874; 84100; 84132; 84484; 85025; 85027; 85610; 85730; 87040; 87071; 87077; 87088; 87186; 87205; 93005; 94002; 94003; 94640; 94664; 94667; 94668; 99291; A4218; J0696; J0713; J1650; J1956; J2543; J3370; J3480; J7608

== ENCOUNTER 2018-07-21 13:44 | Inpatient (IN) | payer MEDICAID ==
[2018-07-21] VITALS (13 sets, daily range): BP systolic 96–124; BP diastolic 49–73
[~2018-07-21] VITALS: Ht 160 cm; Wt 47.2 kg
[~2018-07-21 13:44] MED LIST changes: +ACET160S2 GT; -ACET160S2 PO; -ALBU0.63 IH; +AUD IH; +BACL10TA GT; -BACL10TA PO; +CHOL400T4 GT; -CHOL400T4 PO; +DEXT1DRO OU; +ESOM40CA GT; +GABA-529 GT; -GABA-529 PO; -IBUP100O20 PO; +LACT10SO9 GT; -LACT10SO9 PO; -LEVO750T46 PO; +MIDO10TA GT; -MIDO10TA PEG; +TRAZ-185 GT; -TRAZ-185 PO
[2018-07-21 14:27] LABS: APPEARANCE,URINE Clear (CLEAR); BILIRUBIN,URINE Negative (NEGATIVE); COLOR,URINE Yellow (YELLOW); GLUCOSE, URINE (UA) Negative (NEGATIVE); KETONES,URINE Negative (NEGATIVE); LEUKOCYTE ESTERASE ,URINE Negative (NEGATIVE); NITRATE,URINE Negative (NEGATIVE); OCCULT BLOOD,URINE Negative (NEGATIVE); PROTEIN,URINE POS 1+ (NEGATIVE)
[2018-07-21] MEDS ORDERED: SODIUM CHLORIDE 0.9% 1000ML 1,000 ML IV ONE (14:33)
[2018-07-21 14:36] LABS: BASOPHILS % (AUTO) 0.2 % (0.0-5.0); EOSINOPHILS % (AUTO) 0.1 % (0.0-8.0); HEMATOCRIT 34.3 % (42-54); LYMPHOCYTES % (AUTO) 4.8 % (21.0-51.0); MEAN CORPUSCULAR HEMOGLOBIN 31.7 pg (27.0-33.0); MEAN CORPUSCULAR HGB CONC 33.5 g/dL (32.0-36.0); MEAN CORPUSCULAR VOLUME 94.5 fL (79-99); MONOCYTES % (AUTO) 6.4 % (3.0-13.0); NEUTROPHILS % (AUTO) 88.5 % (40.0-77.0); PLATELET COUNT (AUTO) 235 K/uL (130-400); RED BLOOD CELL COUNT(AUTO) 3.64 MIL/uL (4.50-6.20); RED CELL DISTRIBUTION WIDTH 14.3 % (11.0-15.5); WHITE BLOOD COUNT (AUTO) 20.4 K/uL (4.8-10.8)
[2018-07-21 14:38] LABS: RBC,URINE 0-1 /HPF (0-1); WBC,URINE 0-1 /HPF (0-1)
[2018-07-21 14:40] LABS: BACTERIA,URINE Rare /HPF (None Seen)
[2018-07-21 14:42] LABS: SQUAMOUS EPITHELIAL CELL,UR Rare /HPF (0-2)
[2018-07-21 14:42] LABS: CREATININE 0.1 mg/dL (0.5-1.5); POTASSIUM 3.5 mmol/L (3.5-5.1)
[2018-07-21 14:48] LABS: BILIRUBIN,TOTAL 1.6 mg/dL (0.2-1.0)
[2018-07-21] MEDS ORDERED: LEVOFLOXACIN 500 MG/D5W 100 ML 100 ML ONE (16:47)
[2018-07-21] MEDS ORDERED: ONDANSETRON HCL 4 MG/2 ML VIAL ONE (17:48)
[2018-07-21] MEDS ORDERED: CEFEPIME HCL 2 GM VIAL IVP SCH (18:00)
[2018-07-21] MEDS ORDERED: POTASSIUM CHLORIDE IV SCH (18:15)
[2018-07-21] MEDS ORDERED: VANCOMYCIN PROTOCOL PER PHARMACY IV PRN (18:15)
[2018-07-21] MEDS ORDERED: NACL IV SCH (18:15)
[2018-07-21] MEDS ORDERED: DEXTROSE IV SCH (18:15)
[2018-07-21] MEDS ORDERED: VANCOMYCIN 1GM+NS 250ML 250 ML IV ONE (18:23)
[2018-07-21] MEDS ORDERED: TRAZODONE HCL 50 MG TAB PEG PRN (18:30)
[2018-07-21] MEDS ORDERED: CEFEPIME HCL 1 GM VIAL IVP SCH (18:48)
[2018-07-21] MEDS ORDERED: SODIUM CHLORIDE 0.9% 500ML 500 ML IV ONE (20:03)
[2018-07-21] MEDS: GABAPENTIN 100 MG CAPSULE PEG SCH (20:16)
[2018-07-21] MEDS: FAMOTIDINE/PF 20 MG/2 ML VIAL IV SCH (20:16)
[2018-07-21] MEDS: MIDODRINE HCL 5 MG TABLET PEG SCH (20:16)
[2018-07-21] MEDS ORDERED: ACETAMINOPHEN 650 MG SUPPOSITORY RC ONE (21:00)
[2018-07-21] MEDS: CEFEPIME HCL 1 GM VIAL IVP SCH (21:13)
[2018-07-21] MEDS ORDERED: SERT50TA12 PO (21:34)
[2018-07-21] MEDS: IPRATROPIUM/ALBUTEROL SULFATE 3 ML SOLUTION IH SCH (22:04)
[2018-07-21] MEDS: DEXTROSE IV SCH (23:18)
[2018-07-21] MEDS: NACL IV SCH (23:18)
[2018-07-21] MEDS: POTASSIUM CHLORIDE IV SCH (23:18)
[2018-07-22] VITALS (24 sets, daily range): BP systolic 82–137; BP diastolic 47–91
[2018-07-22] MEDS: IPRATROPIUM/ALBUTEROL SULFATE 3 ML SOLUTION IH SCH ×6 (01:40→22:51)
[2018-07-22] MEDS: CEFEPIME HCL 1 GM VIAL IVP SCH ×3 (01:59→17:49)
[2018-07-22] MEDS: VANCOMYCIN 500MG+NS 100ML 100 ML IV SCH ×2 (02:52→11:28)
[2018-07-22 04:20] LABS: BASOPHILS % (AUTO) 0.1 % (0.0-5.0); EOSINOPHILS % (AUTO) 0.1 % (0.0-8.0); HEMATOCRIT 30.5 % (42-54); LYMPHOCYTES % (AUTO) 5.8 % (21.0-51.0); MEAN CORPUSCULAR HEMOGLOBIN 30.6 pg (27.0-33.0); MEAN CORPUSCULAR HGB CONC 32.4 g/dL (32.0-36.0); MEAN CORPUSCULAR VOLUME 94.5 fL (79-99); MONOCYTES % (AUTO) 7.1 % (3.0-13.0); NEUTROPHILS % (AUTO) 86.9 % (40.0-77.0); PLATELET COUNT (AUTO) 169 K/uL (130-400); RED BLOOD CELL COUNT(AUTO) 3.23 MIL/uL (4.50-6.20); RED CELL DISTRIBUTION WIDTH 14.1 % (11.0-15.5); WHITE BLOOD COUNT (AUTO) 14.7 K/uL (4.8-10.8)
[2018-07-22 04:39] LABS: ALBUMIN 2.5 g/dL (3.5-5.0); BILIRUBIN,DIRECT 0.6 mg/dL (0.0-0.3); BILIRUBIN,TOTAL 1.6 mg/dL (0.2-1.0); CREATININE 0.2 mg/dL (0.5-1.5); MAGNESIUM 1.6 mg/dL (1.80-2.40); POTASSIUM 3.3 mmol/L (3.5-5.1); TOTAL PROTEIN, SERUM 6.9 g/dL (6.0-8.3)
[2018-07-22] MEDS: DEXTROSE IV SCH ×3 (07:00→16:28)
[2018-07-22] MEDS: NACL IV SCH ×3 (07:00→16:28)
[2018-07-22] MEDS: POTASSIUM CHLORIDE IV SCH ×3 (07:00→16:28)
[2018-07-22] MEDS ORDERED: LIDOCAINE HCL-MPF 1% 2ML VIAL IVP PRN (09:00)
[2018-07-22] MEDS ORDERED: POTASSIUM CHLORIDE 20MEQ/100ML 100 ML IV PRN (09:00)
[2018-07-22] MEDS ORDERED: POTASSIUM CHLORIDE 20 MEQ ERTAB PO PRN (09:00)
[2018-07-22] MEDS: MIDODRINE HCL 5 MG TABLET PEG SCH ×3 (09:16→20:17)
[2018-07-22] MEDS: GABAPENTIN 100 MG CAPSULE PEG SCH ×3 (09:16→20:17)
[2018-07-22] MEDS: FAMOTIDINE/PF 20 MG/2 ML VIAL IV SCH ×2 (09:16→20:16)
[2018-07-22] MEDS: POTASSIUM CHLORIDE 10% ELIXIR 20 MEQ/15 ML UDCUP PO PRN ×2 (09:27→13:35)
[2018-07-22] MEDS: MAGNESIUM 2GM PREMIX 50ML 50 ML IV PRN (15:29)
[2018-07-22] MEDS: LEVOFLOXACIN 500 MG/D5W 100 ML 100 ML IV SCH (16:28)
[2018-07-22] MEDS ORDERED: COMPOUND IV REFRIGERATED 1 EACH IVSOLN MISC PRN (19:15)
[2018-07-22] MEDS: VANCOMYCIN 0.75 GM in N.S. 250 ML IV SCH (19:34)
[2018-07-22] MEDS: BACLOFEN 10 MG TABLET PO SCH (20:17)
[2018-07-23] VITALS (13 sets, daily range): BP systolic 74–127; BP diastolic 35–75
[2018-07-23] MEDS: CEFEPIME HCL 1 GM VIAL IVP SCH ×3 (01:11→18:25)
[2018-07-23] MEDS: IPRATROPIUM/ALBUTEROL SULFATE 3 ML SOLUTION IH SCH ×6 (02:14→22:09)
[2018-07-23] MEDS: NACL IV SCH ×3 (02:55→22:34)
[2018-07-23] MEDS: DEXTROSE IV SCH ×3 (02:55→22:34)
[2018-07-23] MEDS: POTASSIUM CHLORIDE IV SCH ×3 (02:55→22:34)
[2018-07-23] MEDS: VANCOMYCIN 0.75 GM in N.S. 250 ML IV SCH ×3 (03:23→22:35)
[2018-07-23 04:21] LABS: BASOPHILS % (AUTO) 0.3 % (0.0-5.0); EOSINOPHILS % (AUTO) 3.3 % (0.0-8.0); HEMATOCRIT 26.7 % (42-54); LYMPHOCYTES % (AUTO) 21.8 % (21.0-51.0); MEAN CORPUSCULAR HEMOGLOBIN 31.7 pg (27.0-33.0); MEAN CORPUSCULAR HGB CONC 33.5 g/dL (32.0-36.0); MEAN CORPUSCULAR VOLUME 94.6 fL (79-99); MONOCYTES % (AUTO) 13.1 % (3.0-13.0); NEUTROPHILS % (AUTO) 61.5 % (40.0-77.0); NUCLEATED RED BLOOD CELLS 0.1 % (0.0-0.19); PLATELET COUNT (AUTO) 183 K/uL (130-400); RED BLOOD CELL COUNT(AUTO) 2.82 MIL/uL (4.50-6.20); RED CELL DISTRIBUTION WIDTH 14.1 % (11.0-15.5); WHITE BLOOD COUNT (AUTO) 6.1 K/uL (4.8-10.8)
[2018-07-23 04:37] LABS: CREATININE 0.2 mg/dL (0.5-1.5); MAGNESIUM 1.7 mg/dL (1.80-2.40); POTASSIUM 4.4 mmol/L (3.5-5.1)
[2018-07-23] MEDS: GABAPENTIN 100 MG CAPSULE PEG SCH ×3 (08:28→23:12)
[2018-07-23] MEDS: MIDODRINE HCL 5 MG TABLET PEG SCH ×3 (08:28→23:12)
[2018-07-23] MEDS: FAMOTIDINE/PF 20 MG/2 ML VIAL IV SCH ×2 (08:28→23:11)
[2018-07-23] MEDS: SERTRALINE HCL 50 MG TABLET PO SCH (08:28)
[2018-07-23] MEDS: MAGNESIUM 2GM PREMIX 50ML 50 ML IV PRN (11:46)
[2018-07-23] MEDS ORDERED: ACETAMINOPHEN 325 MG TAB PEG PRN (12:00)
[2018-07-23] MEDS: LEVOFLOXACIN 500 MG/D5W 100 ML 100 ML IV SCH (18:25)
[2018-07-23] MEDS: BACLOFEN 10 MG TABLET PO SCH (23:12)
[2018-07-24] VITALS (7 sets, daily range): BP systolic 98–121; BP diastolic 56–73
[2018-07-24] MEDS: CEFEPIME HCL 1 GM VIAL IVP SCH ×3 (02:20→18:00)
[2018-07-24] MEDS: IPRATROPIUM/ALBUTEROL SULFATE 3 ML SOLUTION IH SCH ×6 (02:42→22:19)
[2018-07-24] MEDS: VANCOMYCIN 0.75 GM in N.S. 250 ML IV SCH (03:58)
[2018-07-24] MEDS: GABAPENTIN 100 MG CAPSULE PEG SCH ×3 (09:00→23:36)
[2018-07-24] MEDS: MIDODRINE HCL 5 MG TABLET PEG SCH ×3 (13:30→23:35)
[2018-07-24] MEDS: FAMOTIDINE/PF 20 MG/2 ML VIAL IV SCH ×2 (13:30→23:36)
[2018-07-24] MEDS: SERTRALINE HCL 50 MG TABLET PO SCH (13:30)
[2018-07-24] MEDS: BACLOFEN 10 MG TABLET PO SCH (23:35)
[2018-07-25] MEDS: IPRATROPIUM/ALBUTEROL SULFATE 3 ML SOLUTION IH SCH ×6 (01:45→22:07)
[2018-07-25] MEDS: CEFEPIME HCL 1 GM VIAL IVP SCH ×2 (02:19→10:30)
[2018-07-25 03:47] VITALS: BP 100/56
[2018-07-25 03:55] LABS: HEMATOCRIT 29.4 % (42-54); MEAN CORPUSCULAR HEMOGLOBIN 31.9 pg (27.0-33.0); MEAN CORPUSCULAR HGB CONC 33.8 g/dL (32.0-36.0); MEAN CORPUSCULAR VOLUME 94.4 fL (79-99); PLATELET COUNT (AUTO) 265 K/uL (130-400); RED BLOOD CELL COUNT(AUTO) 3.12 MIL/uL (4.50-6.20); RED CELL DISTRIBUTION WIDTH 13.6 % (11.0-15.5); WHITE BLOOD COUNT (AUTO) 5.6 K/uL (4.8-10.8)
[2018-07-25 04:12] LABS: CREATININE 0.2 mg/dL (0.5-1.5); POTASSIUM 4.2 mmol/L (3.5-5.1)
[2018-07-25 07:00] VITALS: BP 106/63
[2018-07-25] MEDS: FAMOTIDINE/PF 20 MG/2 ML VIAL IV SCH ×2 (10:30→21:31)
[2018-07-25] MEDS: MIDODRINE HCL 5 MG TABLET PEG SCH ×3 (10:31→21:31)
[2018-07-25] MEDS: SERTRALINE HCL 50 MG TABLET PO SCH (10:31)
[2018-07-25] MEDS: GABAPENTIN 100 MG CAPSULE PEG SCH ×3 (10:31→21:31)
[2018-07-25 11:25] VITALS: BP 106/63
[2018-07-25] MEDS: MEROPENEM 1 GM VIAL IVP SCH ×2 (12:00→17:59)
[2018-07-25 16:03] VITALS: BP 122/77
[2018-07-25 19:50] VITALS: BP 117/71
[2018-07-25] MEDS: BACLOFEN 10 MG TABLET PO SCH (21:31)
[2018-07-25 23:26] VITALS: BP 97/58
[2018-07-26] MEDS: IPRATROPIUM/ALBUTEROL SULFATE 3 ML SOLUTION IH SCH ×6 (02:01→21:44)
[2018-07-26] MEDS: MEROPENEM 1 GM VIAL IVP SCH ×3 (02:52→18:44)
[2018-07-26 03:24] VITALS: BP 93/56
[2018-07-26 08:19] VITALS: BP 84/50
[2018-07-26] MEDS: FAMOTIDINE/PF 20 MG/2 ML VIAL IV SCH ×2 (09:56→21:50)
[2018-07-26] MEDS: SERTRALINE HCL 50 MG TABLET PO SCH (09:56)
[2018-07-26] MEDS: GABAPENTIN 100 MG CAPSULE PEG SCH ×3 (09:56→21:51)
[2018-07-26] MEDS: MIDODRINE HCL 5 MG TABLET PEG SCH ×3 (09:56→21:50)
[2018-07-26 12:00] VITALS: BP 102/67
[2018-07-26 15:32] LABS: INR 1.1 (0.85-1.15); PROTHROMBIN TIME 11.5 SEC (9.6-11.6)
[2018-07-26 16:00] VITALS: BP 107/68
[2018-07-26 19:41] VITALS: BP_SYST 111; BP_SYST 116; BP_DIAS 59; BP_DIAS 74
[2018-07-26] MEDS: BACLOFEN 10 MG TABLET PO SCH (21:51)
[2018-07-26 23:12] VITALS: BP 91/55
[2018-07-27] MEDS: IPRATROPIUM/ALBUTEROL SULFATE 3 ML SOLUTION IH SCH ×4 (01:42→13:23)
[2018-07-27] MEDS: MEROPENEM 1 GM VIAL IVP SCH ×3 (03:19→14:03)
[2018-07-27 03:42] VITALS: BP 97/51
[2018-07-27 08:00] VITALS: BP 85/50
[2018-07-27] MEDS: FAMOTIDINE/PF 20 MG/2 ML VIAL IV SCH (10:14)
[2018-07-27] MEDS: SERTRALINE HCL 50 MG TABLET PO SCH (10:14)
[2018-07-27] MEDS: GABAPENTIN 100 MG CAPSULE PEG SCH ×2 (10:15→14:50)
[2018-07-27] MEDS: MIDODRINE HCL 5 MG TABLET PEG SCH ×2 (10:15→14:49)
[2018-07-27 12:00] VITALS: BP 108/64
== END 2018-07-27 18:25 | disposition home health service (06) | DRG 720 ==
LOC: EDH 13:44 → EDHIP 13:45 → 2CH 19:40 → 2DH 07-23 15:28 → UNDODISIN 07-27 18:24
PROVIDERS: ADMIT Internal Medicine; ATTEND Internal Medicine
PROC: 5A1955Z Respiratory Ventilation, Greater than 96 Consecutive Hours (ICD-10-PCS; principal; 2018-07-21)
PROC: 02H633Z Insertion of Infusion Device into Right Atrium, Percutaneous Approach (ICD-10-PCS; 2018-07-27)
DX: A41.9 Sepsis, unspecified organism (principal); J96.21 Acute and chronic respiratory failure with hypoxia; E43 Unspecified severe protein-calorie malnutrition; Z99.11 Dependence on respirator [ventilator] status; J18.9 Pneumonia, unspecified organism; J15.1 Pneumonia due to Pseudomonas; Z93.0 Tracheostomy status; G71.0 Muscular dystrophy; R13.12 Dysphagia, oropharyngeal phase; Y95 Nosocomial condition; E87.6 Hypokalemia; J96.22 Acute and chronic respiratory failure with hypercapnia; K56.7 Ileus, unspecified; Z16.24 Resistance to multiple antibiotics; I95.9 Hypotension, unspecified; Z93.1 Gastrostomy status; Z87.01 Personal history of pneumonia (recurrent); Z74.01 Bed confinement status; Z68.1 Body mass index [BMI] 19.9 or less, adult
CPT/HCPCS: 36415; 71045; 80048; 80053; 80076; 80202; 81001; 83605; 83735; 85025; 85027; 85610; 87040; 87071; 87186; 87205; 93005; 94002; 94003; 94640; 94664; A4218; C1894; J0692; J1956; J2185; J2405; J3370; J3475; J3480; J3490; J7030; J7040; J7042

== ENCOUNTER 2018-08-09 12:24 | Day surgery (SDC) | payer MEDICAID ==
[2018-08-09] VITALS (9 sets, daily range): BP systolic 83–126; BP diastolic 43–68
[~2018-08-09 12:24] MED LIST changes: +SERT50TA12 PO
[2018-08-09] MEDS ORDERED: FENTANYL CITRATE PF 50 MCG/1 ML 2ML VIAL ONE (13:20)
[2018-08-09] MEDS ORDERED: PROPOFOL 10 MG/ML 20ML VIAL IV ONE ×2 (13:20)
[2018-08-09] MEDS ORDERED: SODIUM CHLORIDE 0.9% 1000ML 1,000 ML IV ONE (13:21)
[2018-08-09 13:40] LABS: POTASSIUM 4.2 mmol/L (3.5-5.1)
[2018-08-09 13:48] LABS: CREATININE 0.1 mg/dL (0.5-1.5)
== END 2018-08-09 14:25 | disposition home or self-care (01) ==
LOC: DAH 12:24 → ENDO 12:24
PROVIDERS: ATTEND Internal Medicine Gastroenterology
DX: Z43.1 Encounter for attention to gastrostomy (principal); K21.0 Gastro-esophageal reflux disease with esophagitis; K29.00 Acute gastritis without bleeding; G71.00 Muscular dystrophy, unspecified; E46 Unspecified protein-calorie malnutrition; J96.02 Acute respiratory failure with hypercapnia; Z79.899 Other long term (current) drug therapy; Z98.890 Other specified postprocedural states
CPT/HCPCS: 36415; 43246; 80048; J2704 ×2; J3010; J7030

== ENCOUNTER 2020-02-20 22:50 | Inpatient (IN) | payer MEDICAID ==
[~2020-02-20] VITALS: Ht 162.6 cm; Wt 69.9 kg
[2020-02-20 23:38] LABS: BASOPHILS % (AUTO) 0.1 % (0.0-5.0); EOSINOPHILS % (AUTO) 1.6 % (0.0-8.0); HEMATOCRIT 40.5 % (42-54); LYMPHOCYTES % (AUTO) 15.9 % (21.0-51.0); MEAN CORPUSCULAR HEMOGLOBIN 31.4 pg (27.0-33.0); MEAN CORPUSCULAR HGB CONC 32.8 g/dL (32.0-36.0); MEAN CORPUSCULAR VOLUME 95.5 fL (79-99); MONOCYTES % (AUTO) 8.9 % (3.0-13.0); NEUTROPHILS % (AUTO) 73.2 % (40.0-77.0); PLATELET COUNT (AUTO) 212 K/uL (130-400); RED BLOOD CELL COUNT(AUTO) 4.24 MIL/uL (4.50-6.20); RED CELL DISTRIBUTION WIDTH 12.8 % (11.0-15.5); WHITE BLOOD COUNT (AUTO) 7.6 K/uL (4.8-10.8)
[2020-02-20 23:48] LABS: CREATININE 0.2 mg/dL (0.5-1.5); POTASSIUM 4.1 mmol/L (3.5-5.1)
[2020-02-20 23:54] LABS: INR 0.99 (0.85-1.15); PARTIAL THROMBOPLASTIN TIME 28.3 SEC (26.3-35.5); PROTHROMBIN TIME 10.7 SEC (9.6-11.6)
[2020-02-21] VITALS (7 sets, daily range): BP systolic 91–117; BP diastolic 29–69
[2020-02-21 00:02] LABS: ALBUMIN 3.5 g/dL (3.5-5.0); BILIRUBIN,TOTAL 0.6 mg/dL (0.2-1.0); TOTAL PROTEIN, SERUM 7.3 g/dL (6.0-8.3); TROPONIN I 0.07 ng/mL (0.00-0.06)
[2020-02-21 00:17] LABS: APPEARANCE,URINE Clear (CLEAR); BILIRUBIN,URINE Negative (NEGATIVE); COLOR,URINE Yellow (YELLOW); GLUCOSE, URINE (UA) Negative (NEGATIVE); KETONES,URINE Negative (NEGATIVE); LEUKOCYTE ESTERASE ,URINE Negative (NEGATIVE); NITRATE,URINE Negative (NEGATIVE); OCCULT BLOOD,URINE Negative (NEGATIVE); PROTEIN,URINE Negative (NEGATIVE)
[2020-02-21] MEDS ORDERED: CEFTRIAXONE SODIUM 2 GM VIAL ONE (00:38)
[2020-02-21] MEDS ORDERED: AZITHROMYCIN 500MG+NS 250ML 250 ML IV ONE (00:38)
[2020-02-21] MEDS: SODIUM CHLORIDE 0.9% 1000ML 1,000 ML IV SCH ×2 (04:15→19:48)
[2020-02-21] MEDS ORDERED: ACETAMINOPHEN 325 MG TAB PO PRN ×2 (04:15)
[2020-02-21] MEDS ORDERED: ONDANSETRON HCL 4 MG/2 ML VIAL IV PRN (04:15)
[2020-02-21] MEDS: AZITHROMYCIN 500MG+NS 250ML 250 ML IV SCH (04:15)
[2020-02-21] MEDS: CEFTRIAXONE SODIUM 1 GM IVP SCH ×2 (04:15→15:42)
[2020-02-21 05:45] LABS: BASOPHILS % (AUTO) 0.2 % (0.0-5.0); EOSINOPHILS % (AUTO) 3.7 % (0.0-8.0); HEMATOCRIT 32.7 % (42-54); LYMPHOCYTES % (AUTO) 31.8 % (21.0-51.0); MEAN CORPUSCULAR HEMOGLOBIN 31.9 pg (27.0-33.0); MEAN CORPUSCULAR HGB CONC 32.4 g/dL (32.0-36.0); MEAN CORPUSCULAR VOLUME 98.5 fL (79-99); MONOCYTES % (AUTO) 8.3 % (3.0-13.0); NEUTROPHILS % (AUTO) 55.4 % (40.0-77.0); PLATELET COUNT (AUTO) 145 K/uL (130-400); RED BLOOD CELL COUNT(AUTO) 3.32 MIL/uL (4.50-6.20); WHITE BLOOD COUNT (AUTO) 5.4 K/uL (4.8-10.8)
[2020-02-21 06:17] LABS: ALANINE AMINOTRANSFERASE 36 U/L (12-78); ASPARTATE AMINOTRANSFERASE 61 U/L (10-37); BILIRUBIN,TOTAL 0.6 mg/dL (0.2-1.0); CARBON DIOXIDE 26 mmol/L (21-32); CHLORIDE 107 mmol/L (101-111); GLUCOSE,RANDOM 83 mg/dL (70-105); MYOGLOBIN 599 ng/mL (10-92); SODIUM SERUM 141 mmol/L (136-145); TOTAL PROTEIN, SERUM 6.7 g/dL (6.0-8.3); TROPONIN I 0.08 ng/mL (0.00-0.06); UREA NITROGEN, BLOOD 11 mg/dL (7-18)
[2020-02-21 06:19] LABS: CREATINE KINASE, TOTAL 741 U/L (21-232)
[2020-02-21 07:05] LABS: CREATININE 0.2 mg/dL (0.5-1.5); GLOMERULAR FILTR. RATE CALC 586 mL/min (>60)
[2020-02-21] MEDS: FAMOTIDINE/PF 20 MG/2 ML VIAL IV SCH ×4 (09:00→19:48)
[2020-02-21 10:09] LABS: ABG BASE EXCESS -0.8 mmol/L (-2.0-3.0); ABG HCO3 25.4 mmol/L (21.0-28.0); ABG OXYGEN SATURATION 98.7 % (95.0-99.0); ABG PCO2 48 mmHg (35-48)
--- NOTE | 2020-02-21 10:16 | NUR ---
INITIAL SW spoke with patient's stepmother & ROGELIO Cosby, . Stepmother informed SW that patient lives with her and patient's father, Tony Rosario . Patient has [employer] . Nurses come daily. Patient has has PHC with [facility] hours Monday-Monday and 24 hours on weekends. Patient's biological mother is provider on weekends. DME: hospital bed, ventilator, side table, feeding pump, BPM, electric wheelchair and O2 concentrator/portable through [facility]. Patient requires total care. PCP is Dr. Guero العراقي. Pharmacy is [facility] located in [place]. DCP is home. Stepmother does not want patient to go to a [facility] due to fear of COVID 19. Addendum: 02/21/20 at 1021 by STEPHANIE WHEELER SS Amended: Links added.
[2020-02-21 11:11] LABS: CRP QUANTITATIVE 17.1 mg/L (0.00-9.0)
--- NOTE | 2020-02-21 15:18 | NUR ---
RD NOTIFICATION TUBE FEEDING RECOMMENDATION: PIVOT 1.5, GOAL RATE OF 35MLS/HR ([id number], 79 GM PROTEIN). ORDERS TO BE FAXED TO 2ND FLOOR, POD B (EXT 1249). RN TO BE NOTIFIED. NOTE: PT ADMITTED WITH CAP, SOB EXAC. HX OF DUCHENNE MUSCULAR DYSTROPHY. NOTED ELEVATED SERUM PROTEINS (CRP 17.10, TCK 741, MYOGLOBIN 599). RECOMMEND TO MONITOR RENAL FUNCTION, DAILY WEIGHTS, AND SERUM PROTEINS. RD TO FOLLOW UP Addendum: 02/21/20 at [address] Amended: Links added.
[2020-02-21] MEDS ORDERED: DEXTROSE 50%-WATER 50 ML DISP.SYRIN IV ONE (19:41)
[2020-02-22 03:37] VITALS: BP 104/55
[2020-02-22] MEDS: CEFTRIAXONE SODIUM 1 GM IVP SCH ×2 (04:25→15:44)
[2020-02-22] MEDS: AZITHROMYCIN 500MG+NS 250ML 250 ML IV SCH (04:25)
[2020-02-22 05:37] LABS: HEMATOCRIT 36.7 % (42-54); MEAN CORPUSCULAR HEMOGLOBIN 30.6 pg (27.0-33.0); MEAN CORPUSCULAR HGB CONC 31.6 g/dL (32.0-36.0); MEAN CORPUSCULAR VOLUME 96.8 fL (79-99); PLATELET COUNT (AUTO) 188 K/uL (130-400); RED BLOOD CELL COUNT(AUTO) 3.79 MIL/uL (4.50-6.20); RED CELL DISTRIBUTION WIDTH 12.8 % (11.0-15.5); WHITE BLOOD COUNT (AUTO) 8.8 K/uL (4.8-10.8)
[2020-02-22 06:10] LABS: CREATININE 0.2 mg/dL (0.5-1.5); MAGNESIUM 1.7 mg/dL (1.80-2.40); POTASSIUM 3.6 mmol/L (3.5-5.1)
[2020-02-22] MEDS: FAMOTIDINE/PF 20 MG/2 ML VIAL IV SCH ×4 (07:31→21:56)
[2020-02-22 08:00] VITALS: BP 105/72
--- NOTE | 2020-02-22 08:00 | NUR ---
RESTING IN BED WITH HOB AT 30 DEGREES, RESP.'S EVEN AND UNLABORED. AWAKE AND ALERT. DENIES ANY SOB, DENIES ANY CURRENT PAIN. ABD SOFT WITH (+) BOWEL SOUNDS, DENIES ANY C/O N/V. BRIEF IN PLACE, D/I. OFFERED TO REPOSITION, PT. DECLINED. CALL LIGHT IN PT.'S HANDS, ABLE TO USE TO CALL FOR ASSISTANCE. BED LOW, SIDE RAILS UP X4. WINDOW BLINDS OPEN, VISIBLE FROM NURSE'S STATION.
[2020-02-22] MEDS: SODIUM CHLORIDE 0.9% 1000ML 1,000 ML IV SCH ×2 (09:43→20:15)
[2020-02-22 10:55] LABS: ABG BASE EXCESS -8.8 mmol/L (-2.0-3.0); ABG HCO3 15.2 mmol/L (21.0-28.0); ABG OXYGEN SATURATION 96.5 % (95.0-99.0); ABG PCO2 28 mmHg (35-48)
[2020-02-22 11:00] VITALS: BP 102/61
--- NOTE | 2020-02-22 11:38 | NUR ---
DR. MCWILLIAMS IN ROOM ASSESSING/SPEAKING WITH PT. DR. MCWILLIAMS AWARE OF THIS AM ABG RESULTS.
--- NOTE | 2020-02-22 13:20 | NUR ---
RETURN CALL PLACED TO PT.'S STEPMOTHER, CARLOTTA DOMINGUEZ, INFORMED OF DIET ASSISTANT CLEARED PT. FOR DISCHARGE AND PENDING ATTENDING MD TO SEE PT. FOR POTENTIAL DISCHARGE, VERBALIZED UNDERSTANDING.
--- NOTE | 2020-02-22 15:10 | NUR ---
RESTING IN BED WATCHING TELEVISION. CALL LIGHT IN PT.'S HANDS. DENIES ANY C/O AT THIS TIME.
[2020-02-22 15:30] VITALS: BP 118/72
[2020-02-22 19:39] VITALS: BP 114/75
[2020-02-22] MEDS ORDERED: [UNRECOGNIZED DRUG - CODE] PO (20:32)
--- NOTE | 2020-02-22 20:45 | NUR ---
SPOKE TO STEP MOM CARLOTTA DOMINGUEZ [phone], INFORMED HER OF DISCHARGE ORDERS FOR SHANNON SOTOMAYOR. PT WILL CONTINUE AZITHROMYCIN AT HOME, DR BARNES GAVE DISCHARGE ORDERS AND NEW MED ORDER. RX HAS BEEN SENT TO [facility] IN [place]. CARLOTTA IS AWARE OF PENDING RESULTS FOR COVID AND TO TAKE PRECAUTION, PT WILL BE QUARANTINE AT HOME. CARLOTTA NICHOLE VERBALIZES UNDERSTANDING.
--- NOTE | 2020-02-22 23:05 | NUR ---
REMOVED IV FROM THE RIGHT HAND, MINIMAL BLEEDING, GAUZE AREA, SECURED WITH TAPE. PT AWAKE AND ALERT. PT AWARE HE IS BEING TRANSFERRED HOME VIA EMS. FEEDING HAS BEEN STOPPED. TELE MONITOR HAS BEEN REMOVED. VITALS TAKEN, WNL. PT BEING TRANSFERRED WITH HIS HOME VENT MACHINE.
--- NOTE | 2020-02-22 23:20 | NUR ---
PT TRANSFERRED VIA STRETCHER WITH EMS. PT ALERT, AWAKE, DENIES ANY PAIN OR DISCOMFORT.
== END 2020-02-22 23:20 | disposition home or self-care (01) | DRG 133 ==
LOC: EDH 22:50 → EDHIP 22:51 → 2BH 02-21 12:27 → 2DH 02-21 18:42
PROVIDERS: ADMIT Internal Medicine; ATTEND Internal Medicine
PROC: 5A1945Z Respiratory Ventilation, 24-96 Consecutive Hours (ICD-10-PCS; principal; 2020-02-21)
DX: J96.21 Acute and chronic respiratory failure with hypoxia (principal); J18.9 Pneumonia, unspecified organism; E46 Unspecified protein-calorie malnutrition; D89.9 Disorder involving the immune mechanism, unspecified; Z93.0 Tracheostomy status; Z99.11 Dependence on respirator [ventilator] status; J44.0 Chronic obstructive pulmonary disease with (acute) lower respiratory infection; G30.9 Alzheimer's disease, unspecified; F02.80 Dementia in other diseases classified elsewhere, unspecified severity, without behavioral disturbance, psychotic disturbance, mood disturbance, and anxiety; E11.9 Type 2 diabetes mellitus without complications; E87.6 Hypokalemia; I10 Essential (primary) hypertension; I25.10 Atherosclerotic heart disease of native coronary artery without angina pectoris; J96.22 Acute and chronic respiratory failure with hypercapnia; Y95 Nosocomial condition; Z20.828 Contact with and (suspected) exposure to other viral communicable diseases; Z93.1 Gastrostomy status; Z68.26 Body mass index [BMI] 26.0-26.9, adult; Z86.73 Personal history of transient ischemic attack (TIA), and cerebral infarction without residual deficits
CPT/HCPCS: 36415; 36600; 71045; 71046; 80048; 80053; 81003; 82550; 82728; 82803; 82948; 83605; 83615; 83630; 83735; 83874; 84145; 84484; 85025; 85027; 85378; 85384; 85610; 85730; 86140; 87040; 87046; 87071; 87077; 87088; 87186; 87205; 87324; 87633; 87635; 87804; 93005; 94002; 94003; 99291; G0378; J0456; J0696; J3490; J7030; J7070